=== PATIENT | female | born 1960 | race Caucasian/White ===

== ENCOUNTER 2021-01-29 20:43 | Emergency (ER) | payer MEDICAID, OTHER ==
[~2021-01-29] VITALS: Ht 167.6 cm; Wt 72.6 kg
[2021-01-29 23:03] VITALS: BP 182/98
[2021-01-29] MEDS ORDERED: ONDANSETRON ODT 4 MG TAB PO ONE (23:15)
[2021-01-29] MEDS ORDERED: cloNIDine 0.1 mg/24hr 7 DAY PATCH TD ONE (23:30)
[2021-01-30] MEDS ORDERED: cloNIDine HCL 0.1 MG TAB PO ONE (00:15)
== END 2021-01-30 01:15 | disposition left against medical advice (07) ==
LOC: ER 20:44
DX: J32.1 Chronic frontal sinusitis (principal); I10 Essential (primary) hypertension; Z20.822 Contact with and (suspected) exposure to COVID-19
CPT/HCPCS: 36415; 71045; 87426; 99284; Q0162